=== PATIENT | female | born 1980 | race Caucasian/White ===

== ENCOUNTER 2016-09-05 12:33 | Day surgery (SDC) | payer MEDICAID ==
[2016-09-05] MEDS ORDERED: Lidocain 1% EPI 1:100,000 * 30 ML MDV ONE ×3 (13:03→14:22)
[2016-09-05] MEDS ORDERED: Sodium Bicarbonate 8.4% SYR* 10 ML SYRINGE ONE ×2 (13:03)
[2016-09-05 15:19] VITALS: BP 113/76
--- NOTE | 2016-09-06 12:33 | OP ---
DATE OF OPERATION: 09/05/16 - [facility] DATE OF : 80 SURGEON: Oh Dahl MD GUTTER INSTALLER: ORVILLE Avila ANESTHESIOLOGIST: None. ANESTHESIA: Local only with 1% lidocaine with epinephrine and bicarbonate. PRE-OP DIAGNOSES: 1. Right wrist de Quervain's tenosynovitis. 2. Right wrist first dorsal compartment tendon sheath mass. POST-OP DIAGNOSES: 1. Right wrist de Quervain's tenosynovitis. 2. Right wrist first dorsal compartment tendon sheath ganglion cyst. OPERATIVE PROCEDURE: 1. Right wrist de Quervain's release. 2. Excision of right wrist first dorsal compartment tendon sheath ganglion cyst. INDICATIONS: Fatuma has right wrist de Quervain's tenosynovitis and a palpable lump over the first dorsal compartment tendon sheath. I had given her injection, she had been feeling better, but it had been coming back. We talked about risks and benefits, she had elected to proceed. ESTIMATED BLOOD LOSS: 5 mL. COMPLICATIONS: None. FINDINGS: Ganglion cyst coming off the tendon sheath. DESCRIPTION OF PROCEDURE: Katherine was seen in the preoperative holding area and the correct side and site were marked. We had a time-out and then I anesthetized the area with 1% lidocaine with epinephrine and bicarbonate. I came back to the operating room where the arm was prepped and draped in the usual fashion and a formal time-out was performed. A transverse 2-cm incision was made just proximal to the radial styloid over the first dorsal compartment tendon sheath. Dissection was carried down bluntly with a tenotomy scissors and full-thickness flaps were raised right off the tendon sheath. The dorsal, sensory, and radial nerve was identified and protected throughout. With the tendon sheath freed off its soft tissue, I longitudinally incised and opened the sheath. There was a ganglion cyst noted and I ellipsed this out and excised it and sent it off to the pathologist as well. At this point, I completed the release of the tendon sheath proximally and distally with the tenotomy scissors. An accessory compartment was noted. A septum between the compartments was released as well to complete the release of the first dorsal compartment. At this point, there was no compression on any of the tendons. I irrigated out the wound and the skin was closed with some 3-0 Monocryl buried subcuticular suture. Steri-Strips were applied. The wound was dressed with 4x4's, sterile Webril, and an Delfino wrap. The patient was taken to the recovery room in a stable condition. [id number]/[facility] #: [id number]
== END 2016-09-05 15:31 | disposition home or self-care (01) ==
LOC: OREAST 12:33
PROVIDERS: ATTEND Orthopaedic Surgery Hand Surgery
DX: M65.4 Radial styloid tenosynovitis [de Quervain] (principal); M67.431 Ganglion, right wrist
CPT/HCPCS: 88304